=== PATIENT | female | born 1945 | race Caucasian/White ===

== ENCOUNTER 2025-01-02 12:06 | Observation (INO) ==
[2024-12-30 09:50] LABS: Basophils # (Auto) 0.03 K/mcL (0.00-0.30); Basophils % (Auto) 0.5 % (0.0-2.0); Eosinophils # (Auto) 0.52 K/mcL (0.00-0.70); Eosinophils % (Auto) 9.4 % (0.0-7.0); Hematocrit 41.2 % (34.1-44.9); Hemoglobin 13.4 g/dL (11.2-15.7); Lymphocytes # (Auto) 2.04 K/mcL (1.50-4.80); Mean Cell Volume 98.8 fL (80.0-100.0); Mean Corpuscular HGB Conc 32.5 g/dL (31.0-36.0); Mean Platelet Volume 9.3 fL (8.8-12.5); Monocytes # (Auto) 0.54 K/mcL (0.10-0.90); Monocytes % (Auto) 9.8 % (1.0-12.0); Neutrophils % (Auto) 43.3 % (38.0-78.0); Platelet Count 195 K/mcL (140-440); RBC 4.17 M/mcL (3.59-5.38); Red Cell Distribution Width 12.4 % (11.5-14.5); WBC 5.5 K/mcL (4.5-11.0)
[2024-12-30 10:10] LABS: Blood Urea Nitrogen 21 mg/dL (8-23); Calcium 9.5 mg/dL (8.6-10.4); Carbon Dioxide 26 mmol/L (22-30); Chloride 101 mmol/L (96-108); Glomerular Filtration Rate 71; Glucose 94 mg/dL (70-105); Potassium 4.4 mmol/L (3.3-5.1); Sodium 139 mmol/L (133-145)
[2025-01-02] MEDS ORDERED: FAMOTIDINE/PF 20 MG/2 ML VIAL IV ONE (13:57)
[2025-01-02] MEDS ORDERED: PROPOFOL 200 MG/20 ML VIAL IV ONE (15:37)
[2025-01-02] MEDS ORDERED: GLYCOPYRROLATE 0.2 MG/ML VIAL IV ONE (15:37)
[2025-01-02] MEDS ORDERED: ONDANSETRON 4 MG/2 ML VIAL IV ONE (15:37)
[2025-01-02] MEDS: DEXTROSE 5%-LR 1,000 ML IV SCH (16:35)
[2025-01-02] MEDS: LEVOFLOXACIN 500 MG/100 ML BAG IV SCH (16:46)
[2025-01-02] MEDS: HYDROmorphone 0.5 MG/0.5 ML SYRINGE IV PRN (17:01)
[2025-01-02] MEDS: metroNIDAZOLE 500 MG/100 ML BAG IV SCH (17:50)
[2025-01-02] MEDS ORDERED: metroNIDAZOLE 500 MG/100 ML BAG IV SCH (18:00)
[2025-01-03] MEDS: ONDANSETRON 4 MG/2 ML VIAL IV PRN (04:35)
[2025-01-03 06:24] LABS: Hematocrit 35.2 % (34.1-44.9); Hemoglobin 11.5 g/dL (11.2-15.7); Mean Cell Volume 100.3 fL (80.0-100.0); Mean Corpuscular HGB Conc 32.7 g/dL (31.0-36.0); Mean Platelet Volume 9.7 fL (8.8-12.5); Platelet Count 156 K/mcL (140-440); RBC 3.51 M/mcL (3.59-5.38); Red Cell Distribution Width 12.7 % (11.5-14.5); WBC 8.8 K/mcL (4.5-11.0)
[2025-01-03 06:43] LABS: Blood Urea Nitrogen 12 mg/dL (8-23); Calcium 8.7 mg/dL (8.6-10.4); Carbon Dioxide 26 mmol/L (22-30); Chloride 102 mmol/L (96-108); Glomerular Filtration Rate 83; Glucose 141 mg/dL (70-105); Potassium 4.1 mmol/L (3.3-5.1); Sodium 137 mmol/L (133-145)
[2025-01-03] MEDS: metroNIDAZOLE 500 MG/100 ML BAG IV SCH (14:18)
[2025-01-04 06:16] LABS: Hematocrit 35.3 % (34.1-44.9); Hemoglobin 11.6 g/dL (11.2-15.7); Mean Corpuscular HGB Conc 32.9 g/dL (31.0-36.0); Mean Platelet Volume 9.5 fL (8.8-12.5); Platelet Count 136 K/mcL (140-440); RBC 3.53 M/mcL (3.59-5.38); Red Cell Distribution Width 12.7 % (11.5-14.5); WBC 5.7 K/mcL (4.5-11.0)
[2025-01-04 06:27] LABS: Blood Urea Nitrogen 9 mg/dL (8-23); Calcium 8.6 mg/dL (8.6-10.4); Carbon Dioxide 26 mmol/L (22-30); Chloride 105 mmol/L (96-108); Glomerular Filtration Rate 71; Glucose 113 mg/dL (70-105); Potassium 3.9 mmol/L (3.3-5.1); Sodium 141 mmol/L (133-145)
[2025-01-04] MEDS: LEVOFLOXACIN 500 MG/100 ML BAG IV SCH (10:42)
[2025-01-04 12:28] VITALS: TEMP 97.6; O2SAT 92
== END 2025-01-04 12:07 | disposition home or self-care (01) ==
LOC: SSSU 12:06 → MEDSUR 12:06
PROVIDERS: ADMIT Surgery Surgical Critical Care; ATTEND Surgery Surgical Critical Care
PROC: COLONBX (2025-01-02 13:00)